=== PATIENT | female | born 1935 | race African-American/Black ===

== ENCOUNTER 2016-10-21 14:07 | Inpatient (IN) | payer MEDICARE, MEDICAID ==
[~2016-10-21] VITALS: Ht 165.1 cm; Wt 74.8 kg
[~2016-10-21 14:07] MED LIST: AMLO5TAB4; CLOP75TA2; DONE5TAB7; LACT10SO76; LISI-186; NEPVIT; PIOG15TA6; ROSU20TA
[2016-10-21 16:13] LABS: BASOPHILS % 1.1 % (0.0-2.0); EOSINOPHILS % 5.6 % (0.0-5.0); HEMATOCRIT. 35.4 % (36.0-48.0); HEMOGLOBIN. 11.5 g/dL (12.0-16.0); LYMPHOCYTES % 30.4 % (20.0-50.0); MEAN CORPUSCULAR VOLUME 98.1 fL (81.0-99.0); MEAN PLATELET VOLUME 9.1 fl (7.4-10.4); MONOCYTES % 7.2 % (2.0-8.0); NEUTROPHILS % 55.7 % (40.0-76.0); PLATELET 164 x1000/uL (130-400); RED BLOOD CELL COUNT 3.61 mill/uL (4.2-5.4); RED CELL DISTRIBUTION WIDTH 13.6 % (11.6-14.6)
[2016-10-21 16:17] LABS: CHLORIDE 115 mEq/L (98-107)
[2016-10-21 16:20] LABS: INR 1.1; PROTHROMBIN TIME 11.3 sec
[2016-10-21 16:24] LABS: CARBON DIOXIDE 22 mEq/L (21-32)
[2016-10-21 19:31] LABS: CLARITY URINE CLOUDY (CLEAR); COLOR URINE YELLOW (YELLOW); GLUCOSE URINE NEGATIVE (NEGATIVE); KETONES URINE NEGATIVE (NEGATIVE); LEUKOCYTE ESTERASE URINE 3+ (NEGATIVE); NITRITE URINE NEGATIVE (NEGATIVE); OCCULT BLOOD URINE 3+ (NEGATIVE); PROTEIN URINE 3+ (NEGATIVE); SPECIFIC GRAVITY URINE 1.013 (1.005-1.030); UROBILINOGEN URINE 0.2 E.U./dL (0.2-1.0)
[2016-10-22 09:31] VITALS: BP 186/97
[2016-10-22 10:11] VITALS: BP 186/97
[2016-10-22] MEDS ORDERED: [UNRECOGNIZED DRUG - OTHER] (10:32)
[2016-10-22] MEDS ORDERED: CRANBERRY (10:32)
[2016-10-22] MEDS ORDERED: ATOR80TA PO ×2 (10:32)
[2016-10-22] MEDS ORDERED: FAMO20TA8 PO (10:32)
[2016-10-22] MEDS ORDERED: CHOL400T15 MT (10:32)
[2016-10-22] MEDS ORDERED: CALC0.253 PO (10:32)
[2016-10-22] MEDS ORDERED: BRIM5DRO EACHEYE (10:32)
[2016-10-22] MEDS ORDERED: DEXT15DR5 EACHEYE (10:32)
[2016-10-22] MEDS ORDERED: DOCU-150 PO (10:32)
[2016-10-22] MEDS ORDERED: ACET-2178 PO (10:32)
[2016-10-22] MEDS ORDERED: BIMA2.5D4 EACHEYE (10:32)
[2016-10-22 12:11] VITALS: BP 159/90
[2016-10-22] MEDS: INSULIN LISPRO 100 UNITS/ML SUBCUT SCH ×2 (12:50→17:04)
[2016-10-22] MEDS: SODIUM CHLORIDE 0.45% 1,000 ML IV SCH (12:52)
[2016-10-22] MEDS: LACTULOSE 20G/30ML UDC PO SCH (12:52)
[2016-10-22] MEDS: CLOPIDOGREL 75MG TABLET PO SCH (12:53)
[2016-10-22] MEDS: LISINOPRIL 5MG TABLET PO SCH (12:53)
[2016-10-22] MEDS: AMLODIPINE 5MG TABLET PO SCH (12:53)
[2016-10-22] MEDS: FOLIC ACID 1MG TABLET PO SCH (12:53)
[2016-10-22] MEDS: BLOOD SUGAR DIAGNOSTIC STRIP TEST SCH ×3 (12:53→21:00)
[2016-10-22 16:00] VITALS: BP 161/93
[2016-10-22] MEDS: LEVOFLOXACIN 250MG PREMIX 50 ML IV SCH (17:10)
[2016-10-22 20:00] VITALS: BP 156/95
[2016-10-23] VITALS: BP 156/108
[2016-10-23] MEDS: SODIUM CHLORIDE 0.45% 1,000 ML IV SCH ×2 (04:02→17:27)
[2016-10-23 07:23] LABS: VITAMIN B12 SERUM 455 pg/mL (211-911)
[2016-10-23] MEDS: INSULIN LISPRO 100 UNITS/ML SUBCUT SCH ×4 (07:50→20:57)
[2016-10-23 08:00] VITALS: BP 153/70
[2016-10-23] MEDS: CLOPIDOGREL 75MG TABLET PO SCH (08:51)
[2016-10-23] MEDS: FOLIC ACID 1MG TABLET PO SCH (08:51)
[2016-10-23] MEDS: AMLODIPINE 5MG TABLET PO SCH (08:51)
[2016-10-23] MEDS: LACTULOSE 20G/30ML UDC PO SCH (08:51)
[2016-10-23] MEDS: LISINOPRIL 5MG TABLET PO SCH (08:52)
[2016-10-23 12:00] VITALS: BP 169/93
[2016-10-23] MEDS: BLOOD SUGAR DIAGNOSTIC STRIP TEST SCH ×3 (12:20→20:57)
[2016-10-23] MEDS ORDERED: AMLODIPINE 5MG TABLET PO NR (13:10)
[2016-10-23 13:47] LABS: CREATININE URINE (RAW) 57.2 mg/dl
[2016-10-23] MEDS: HYDROCODONE/ACETAMINOPHEN 5/325MG TABLET PO PRN (13:52)
[2016-10-23 16:00] VITALS: BP 148/85
[2016-10-23] MEDS: ENOXAPARIN 30MG/0.3ML SYR SUBCUT SCH (17:27)
[2016-10-23 20:00] VITALS: BP 116/73
[2016-10-23] MEDS: LORAZEPAM 2MG/ML CPJ IM PRN (22:52)
[2016-10-24 04:00] VITALS: BP 174/98
[2016-10-24] MEDS: HYDROCODONE/ACETAMINOPHEN 5/325MG TABLET PO PRN (05:40)
[2016-10-24] MEDS: SODIUM CHLORIDE 0.45% 1,000 ML IV SCH (06:03)
[2016-10-24 06:42] VITALS: BP 142/75
[2016-10-24 06:55] LABS: BASOPHILS % 1.1 % (0.0-2.0); EOSINOPHILS % 5.3 % (0.0-5.0); HEMATOCRIT. 32.4 % (36.0-48.0); HEMOGLOBIN. 10.9 g/dL (12.0-16.0); LYMPHOCYTES % 30.6 % (20.0-50.0); MEAN CORPUSCULAR HEMOGLOBIN 32.5 pg (28.0-32.0); MEAN CORPUSCULAR VOLUME 96.5 fL (81.0-99.0); MONOCYTES % 7.4 % (2.0-8.0); NEUTROPHILS % 55.6 % (40.0-76.0); PLATELET 152 x1000/uL (130-400); RED BLOOD CELL COUNT 3.36 mill/uL (4.2-5.4); RED CELL DISTRIBUTION WIDTH 13.7 % (11.6-14.6)
[2016-10-24] MEDS: BLOOD SUGAR DIAGNOSTIC STRIP TEST SCH ×4 (07:20→20:35)
[2016-10-24] MEDS: INSULIN LISPRO 100 UNITS/ML SUBCUT SCH ×4 (07:50→20:35)
[2016-10-24 08:00] VITALS: BP 130/77
[2016-10-24] MEDS: LACTULOSE 20G/30ML UDC PO SCH (09:06)
[2016-10-24] MEDS: FOLIC ACID 1MG TABLET PO SCH (09:07)
[2016-10-24] MEDS: AMLODIPINE 10MG TABLET PO SCH (09:07)
[2016-10-24] MEDS: LORAZEPAM 2MG/ML CPJ IM PRN ×2 (09:07→21:31)
[2016-10-24 12:00] VITALS: BP 128/78
[2016-10-24] MEDS: LEVOFLOXACIN 250MG PREMIX 50 ML IV SCH (12:41)
[2016-10-24] MEDS: SODIUM BICARBONATE 50 MEQ in SODIUM CHLORIDE 0.45% 1,000 ML IV SCH (14:23)
[2016-10-24] MEDS: CLOPIDOGREL 75MG TABLET PO SCH (15:15)
[2016-10-24] MEDS: ENOXAPARIN 30MG/0.3ML SYR SUBCUT SCH (15:16)
[2016-10-24 16:00] VITALS: BP 118/78
[2016-10-24 20:00] VITALS: BP 139/73
[2016-10-25] VITALS: BP 145/69
[2016-10-25 04:00] VITALS: BP 150/79
[2016-10-25] MEDS: SODIUM BICARBONATE 50 MEQ in SODIUM CHLORIDE 0.45% 1,000 ML IV SCH (05:52)
[2016-10-25] MEDS: BLOOD SUGAR DIAGNOSTIC STRIP TEST SCH ×4 (06:08→21:05)
[2016-10-25] MEDS: DEXTROSE 50% WATER 50ML SYRINGE IV PRN (06:12)
[2016-10-25] MEDS: INSULIN LISPRO 100 UNITS/ML SUBCUT SCH ×4 (07:39→21:00)
[2016-10-25 07:52] LABS: BASOPHILS % 1.1 % (0.0-2.0); EOSINOPHILS % 5.6 % (0.0-5.0); HEMATOCRIT. 33.6 % (36.0-48.0); HEMOGLOBIN. 11.1 g/dL (12.0-16.0); LYMPHOCYTES % 25.1 % (20.0-50.0); MEAN CORPUSCULAR VOLUME 96.8 fL (81.0-99.0); MEAN PLATELET VOLUME 8.8 fl (7.4-10.4); NEUTROPHILS % 60.2 % (40.0-76.0); PLATELET 160 x1000/uL (130-400); RED BLOOD CELL COUNT 3.47 mill/uL (4.2-5.4); RED CELL DISTRIBUTION WIDTH 13.4 % (11.6-14.6)
[2016-10-25 07:58] VITALS: BP 128/76
[2016-10-25] MEDS: FOLIC ACID 1MG TABLET PO SCH (09:34)
[2016-10-25] MEDS: ENOXAPARIN 30MG/0.3ML SYR SUBCUT SCH (09:34)
[2016-10-25] MEDS: CLOPIDOGREL 75MG TABLET PO SCH (09:34)
[2016-10-25] MEDS: LACTULOSE 20G/30ML UDC PO SCH (09:34)
[2016-10-25] MEDS: AMLODIPINE 10MG TABLET PO SCH (09:35)
[2016-10-25 12:00] VITALS: BP 163/97
[2016-10-25] MEDS ORDERED: CLONIDINE 0.1MG TABLET PO PRN (13:00)
[2016-10-25 16:00] VITALS: BP 123/76
[2016-10-25 18:29] LABS: INR 1.1; PARTIAL THROMBOPLASTIN TIME 34.1 sec (24.0-34.0)
[2016-10-25 20:00] VITALS: BP 168/85
[2016-10-26] VITALS: BP 147/77
[2016-10-26 04:00] VITALS: BP 168/85
[2016-10-26] MEDS: BLOOD SUGAR DIAGNOSTIC STRIP TEST SCH ×4 (06:47→21:23)
[2016-10-26] MEDS: DEXTROSE 50% WATER 50ML SYRINGE IV PRN (06:48)
[2016-10-26] MEDS: INSULIN LISPRO 100 UNITS/ML SUBCUT SCH ×4 (06:48→21:00)
[2016-10-26 06:54] LABS: HEPATITIS B SURFACE ANTIGEN NEGATIVE
[2016-10-26 07:35] LABS: HEPATITIS B SURFACE AB < 3.1 mIU/mL
[2016-10-26 08:12] VITALS: BP 126/88
[2016-10-26 09:54] LABS: BASOPHILS % 1.3 % (0.0-2.0); EOSINOPHILS % 5.6 % (0.0-5.0); HEMATOCRIT. 34.9 % (36.0-48.0); HEMOGLOBIN. 11.5 g/dL (12.0-16.0); LYMPHOCYTES % 33.1 % (20.0-50.0); MEAN CORPUSCULAR VOLUME 97.3 fL (81.0-99.0); MEAN PLATELET VOLUME 9.6 fl (7.4-10.4); PLATELET 166 x1000/uL (130-400); RED BLOOD CELL COUNT 3.58 mill/uL (4.2-5.4); RED CELL DISTRIBUTION WIDTH 13.6 % (11.6-14.6)
[2016-10-26] MEDS: LACTULOSE 20G/30ML UDC PO SCH (10:57)
[2016-10-26] MEDS: AMLODIPINE 10MG TABLET PO SCH (10:58)
[2016-10-26] MEDS: FOLIC ACID 1MG TABLET PO SCH (10:58)
[2016-10-26] MEDS ORDERED: LEVOFLOXACIN 250MG TABLET PO SCH (11:00)
[2016-10-26 12:03] VITALS: BP 128/84
[2016-10-26] MEDS ORDERED: SODIUM POLYSTYRENE SULFONATE 15 G/60 ML BOT PO NR (15:45)
[2016-10-26 16:00] VITALS: BP 108/74
[2016-10-26 20:00] VITALS: BP 115/83
[2016-10-27] VITALS (16 sets, daily range): BP systolic 121–152; BP diastolic 71–99
[2016-10-27] MEDS: BLOOD SUGAR DIAGNOSTIC STRIP TEST SCH ×3 (06:36→17:52)
[2016-10-27 07:34] LABS: BASOPHILS % 0.7 % (0.0-2.0); EOSINOPHILS % 2.2 % (0.0-5.0); HEMATOCRIT. 32.2 % (36.0-48.0); HEMOGLOBIN. 10.9 g/dL (12.0-16.0); LYMPHOCYTES % 21.7 % (20.0-50.0); MEAN CORPUSCULAR HEMOGLOBIN 32.8 pg (28.0-32.0); MEAN CORPUSCULAR VOLUME 96.7 fL (81.0-99.0); MEAN PLATELET VOLUME 9.2 fl (7.4-10.4); MONOCYTES % 7.4 % (2.0-8.0); PLATELET 156 x1000/uL (130-400); RED BLOOD CELL COUNT 3.33 mill/uL (4.2-5.4); RED CELL DISTRIBUTION WIDTH 13.4 % (11.6-14.6)
[2016-10-27] MEDS: INSULIN LISPRO 100 UNITS/ML SUBCUT SCH ×3 (07:50→17:50)
[2016-10-27] MEDS: LACTULOSE 20G/30ML UDC PO SCH (08:34)
[2016-10-27 08:42] LABS: PARTIAL THROMBOPLASTIN TIME 31.3 sec (24.0-34.0); PROTHROMBIN TIME 10.7 sec
[2016-10-27] MEDS: FOLIC ACID 1MG TABLET PO SCH (09:01)
[2016-10-27] MEDS: AMLODIPINE 10MG TABLET PO SCH (09:01)
[2016-10-27] MEDS ORDERED: CEFAZOLIN 1000MG PREMIX 50 ML IV ONE ×2 (10:00→10:45)
[2016-10-27] MEDS ORDERED: FENTANYL CITRATE/PF 50MCG/ML 2ML VIAL IV ONE (10:27)
[2016-10-27] MEDS ORDERED: FENTANYL CITRATE/PF 50MCG/ML 2ML VIAL ONE (10:32)
[2016-10-27] MEDS ORDERED: SODIUM BICARBONATE 4% (2.4MEQ) 5ML VIAL IV ONE (10:39)
[2016-10-27] MEDS ORDERED: LIDOCAINE HCL 1% 20ML VIAL (Pyxis) INJ ONE (10:40)
== END 2016-10-27 19:00 | DRG 64 ==
LOC: ER 14:50 → 6WST 17:54
PROVIDERS: ADMIT Internal Medicine; ATTEND Internal Medicine
PROC: 4A00X4Z Measurement of Central Nervous Electrical Activity, External Approach (ICD-10-PCS; principal; 2016-10-25)
PROC: 02HV33Z Insertion of Infusion Device into Superior Vena Cava, Percutaneous Approach (ICD-10-PCS; 2016-10-27)
PROC: B5181ZA Fluoroscopy of Superior Vena Cava using Low Osmolar Contrast, Guidance (ICD-10-PCS; 2016-10-27)
PROC: B548ZZA Ultrasonography of Superior Vena Cava, Guidance (ICD-10-PCS; 2016-10-27)
PROC: 5A1D00Z (ICD-10-PCS; 2016-10-27)
DX: I63.9 Cerebral infarction, unspecified (principal); G93.40 Encephalopathy, unspecified; N18.6 End stage renal disease; E87.0 Hyperosmolality and hypernatremia; E87.2 Acidosis; I12.0 Hypertensive chronic kidney disease with stage 5 chronic kidney disease or end stage renal disease; N39.0 Urinary tract infection, site not specified; G81.91 Hemiplegia, unspecified affecting right dominant side; E11.22 Type 2 diabetes mellitus with diabetic chronic kidney disease; E11.21 Type 2 diabetes mellitus with diabetic nephropathy; E78.00 Pure hypercholesterolemia, unspecified; E86.0 Dehydration; E87.5 Hyperkalemia; F03.90 Unspecified dementia, unspecified severity, without behavioral disturbance, psychotic disturbance, mood disturbance, and anxiety; F09 Unspecified mental disorder due to known physiological condition; H54.0 Blindness, both eyes; R62.7 Adult failure to thrive; M19.90 Unspecified osteoarthritis, unspecified site; I25.10 Atherosclerotic heart disease of native coronary artery without angina pectoris; J44.9 Chronic obstructive pulmonary disease, unspecified; Z99.2 Dependence on renal dialysis; Z79.899 Other long term (current) drug therapy; Z87.01 Personal history of pneumonia (recurrent)
CPT/HCPCS: 36415; 36558; 51702; 70450; 70551; 71010; 76770; 76937; 77001; 80048; 80053; 80061; 81001; 82565; 82575; 82607; 82947; 82962; 84100; 84443; 85025; 85610; 85730; 86706; 86803; 87086; 87340; 92610; 93005; 93880; 96361; 96365; 97162; 99285; A6261; C1750; C1893; J0690; J1650; J1956; J2060; J3010; J3490; A4315

== ENCOUNTER 2017-04-11 17:42 | Inpatient (IN) | payer MEDICARE, MEDICAID ==
[~2017-04-11] VITALS: Ht 165.1 cm; Wt 68.0 kg
[~2017-04-11 17:42] MED LIST changes: +ACET-2178 PO; +ATOR80TA PO; +BIMA2.5D4 EACHEYE; +BRIM5DRO EACHEYE; +CALC0.253 PO; +CHOL400T15 MT; +CLOP75TA16; -CLOP75TA2; +CRANBERRY; +DEXT15DR5 EACHEYE; +DOCU-150 PO; +FAMO20TA8 PO; -NEPVIT; +NEPVIT PO; +[UNRECOGNIZED DRUG - OTHER]
[2017-04-11 18:39] LABS: BASOPHILS % 1.3 % (0.0-2.0); EOSINOPHILS % 5.9 % (0.0-5.0); HEMATOCRIT. 37.1 % (36.0-48.0); HEMOGLOBIN. 12.2 g/dL (12.0-16.0); LYMPHOCYTES % 28.8 % (20.0-50.0); MEAN CORPUSCULAR VOLUME 103.4 fL (81.0-99.0); MEAN PLATELET VOLUME 8.2 fl (7.4-10.4); MONOCYTES % 9.5 % (2.0-8.0); NEUTROPHILS % 54.5 % (40.0-76.0); PLATELET 175 x1000/uL (130-400); RED BLOOD CELL COUNT 3.59 mill/uL (4.2-5.4); RED CELL DISTRIBUTION WIDTH 15.5 % (11.6-14.6)
[2017-04-11 18:45] LABS: CHLORIDE 109 mEq/L (98-107)
[2017-04-11 18:46] LABS: PROTHROMBIN TIME 10.5 sec (9.4-11.6)
[2017-04-11 18:53] LABS: CARBON DIOXIDE 26 mEq/L (21-32)
[2017-04-11] MEDS ORDERED: VANCOMYCIN 1 G PREMIX 200 ML IV SCH (20:00)
[2017-04-11] MEDS ORDERED: IBUPROFEN 600MG TABLET PO PRN (20:30)
[2017-04-11] MEDS ORDERED: ACETAMINOPHEN 325MG TABLET PO PRN (20:30)
[2017-04-11 22:40] VITALS: BP 139/71
[2017-04-12] VITALS: BP 141/70
[2017-04-12] MEDS ORDERED: CINA30 PO (01:09)
[2017-04-12] MEDS ORDERED: CALC0.253 PO (01:13)
[2017-04-12] MEDS ORDERED: CALC668T PO (01:15)
[2017-04-12] MEDS ORDERED: CLON0.1T14 PO (01:18)
[2017-04-12] MEDS ORDERED: LACT10SO PO (01:26)
[2017-04-12] MEDS ORDERED: LACT10SO6 MT (01:26)
[2017-04-12] MEDS ORDERED: SODI15PO2 PO (01:31)
[2017-04-12 05:25] VITALS: BP 126/75
[2017-04-12] MEDS ORDERED: DEXTROSE 50% WATER 50ML SYRINGE IV PRN (06:30)
[2017-04-12] MEDS ORDERED: ACETAMINOPHEN 325MG TABLET PO SCH (06:45)
[2017-04-12] MEDS ORDERED: CLONIDINE 0.1MG TABLET PO PRN (06:45)
[2017-04-12] MEDS: BLOOD SUGAR DIAGNOSTIC STRIP TEST SCH ×4 (06:55→21:00)
[2017-04-12] MEDS: INSULIN LISPRO 100 UNITS/ML SUBCUT SCH ×4 (06:55→21:00)
[2017-04-12 07:43] VITALS: BP 122/62
[2017-04-12] MEDS ORDERED: SODIUM POLYSTYRENE SULFONATE 30 GM PO SCH (09:00)
[2017-04-12] MEDS ORDERED: CALCIUM ACETATE PO SCH (09:00)
[2017-04-12] MEDS: FOLIC ACID/VITAMIN B COMP W-C TABLET PO SCH (09:36)
[2017-04-12] MEDS: CLOPIDOGREL 75MG TABLET PO SCH (09:36)
[2017-04-12] MEDS: AMLODIPINE 5MG TABLET PO SCH (09:36)
[2017-04-12] MEDS: CINACALCET HCL 30MG TABLET PO SCH (09:37)
[2017-04-12] MEDS: SODIUM POLYSTYRENE SULFONATE 15 G/60 ML BOT PO SCH ×3 (09:41→16:34)
[2017-04-12] MEDS: CALCIUM ACETATE 667MG CAPSULE PO SCH ×3 (09:55→18:08)
[2017-04-12 10:24] LABS: BASOPHILS % 1.2 % (0.0-2.0); EOSINOPHILS % 8.2 % (0.0-5.0); HEMOGLOBIN. 11.6 g/dL (12.0-16.0); LYMPHOCYTES % 27.6 % (20.0-50.0); MEAN CORPUSCULAR HEMOGLOBIN 33.9 pg (28.0-32.0); MEAN CORPUSCULAR VOLUME 102.1 fL (81.0-99.0); MEAN PLATELET VOLUME 8.4 fl (7.4-10.4); MONOCYTES % 6.9 % (2.0-8.0); NEUTROPHILS % 56.1 % (40.0-76.0); PLATELET 169 x1000/uL (130-400); RED BLOOD CELL COUNT 3.43 mill/uL (4.2-5.4); RED CELL DISTRIBUTION WIDTH 15.2 % (11.6-14.6)
[2017-04-12 12:08] VITALS: BP 120/76
[2017-04-12] MEDS ORDERED: LIDOCAINE HCL 1% 20ML VIAL (Pyxis) INJ ONE (13:53)
[2017-04-12] MEDS ORDERED: SODIUM BICARBONATE 4% (2.4MEQ) 5ML VIAL IV ONE (13:53)
[2017-04-12] MEDS ORDERED: VANCOMYCIN 500 MG PREMIX 100 ML IV NR (15:00)
[2017-04-12 15:37] VITALS: BP 135/90
[2017-04-12] MEDS: LACTULOSE 20G/30ML UDC PO SCH ×2 (16:19→22:00)
[2017-04-12] MEDS: CALCITRIOL 0.25MCG CAPSULE PO SCH (18:08)
[2017-04-12 20:00] VITALS: BP 106/73
[2017-04-13] VITALS: BP 115/63
[2017-04-13 04:00] VITALS: BP 133/69
[2017-04-13] MEDS: LACTULOSE 20G/30ML UDC PO SCH ×3 (06:00→23:13)
[2017-04-13] MEDS: BLOOD SUGAR DIAGNOSTIC STRIP TEST SCH ×4 (06:07→21:17)
[2017-04-13] MEDS: INSULIN LISPRO 100 UNITS/ML SUBCUT SCH ×4 (06:34→21:00)
[2017-04-13 08:00] VITALS: BP 114/76
[2017-04-13] MEDS: CALCIUM ACETATE 667MG CAPSULE PO SCH ×3 (08:12→18:04)
[2017-04-13] MEDS: AMLODIPINE 5MG TABLET PO SCH (09:16)
[2017-04-13] MEDS: CLOPIDOGREL 75MG TABLET PO SCH (09:16)
[2017-04-13] MEDS: CINACALCET HCL 30MG TABLET PO SCH (09:17)
[2017-04-13] MEDS: FOLIC ACID/VITAMIN B COMP W-C TABLET PO SCH (09:18)
[2017-04-13 12:00] VITALS: BP 131/61
[2017-04-13 17:42] VITALS: BP 160/60
[2017-04-13] MEDS: CALCITRIOL 0.25MCG CAPSULE PO SCH (18:04)
[2017-04-13 20:00] VITALS: BP 91/51
[2017-04-14] VITALS: BP 121/67
[2017-04-14 04:00] VITALS: BP 133/96
[2017-04-14] MEDS: LACTULOSE 20G/30ML UDC PO SCH ×3 (06:43→21:31)
[2017-04-14] MEDS: BLOOD SUGAR DIAGNOSTIC STRIP TEST SCH ×4 (06:46→21:31)
[2017-04-14] MEDS: INSULIN LISPRO 100 UNITS/ML SUBCUT SCH ×4 (07:50→21:00)
[2017-04-14 08:00] VITALS: BP 100/55
[2017-04-14] MEDS: CLOPIDOGREL 75MG TABLET PO SCH (10:07)
[2017-04-14] MEDS: FOLIC ACID/VITAMIN B COMP W-C TABLET PO SCH (10:07)
[2017-04-14] MEDS: AMLODIPINE 5MG TABLET PO SCH (10:07)
[2017-04-14] MEDS: CALCIUM ACETATE 667MG CAPSULE PO SCH ×3 (12:50→17:57)
[2017-04-14] MEDS: CINACALCET HCL 30MG TABLET PO SCH (14:16)
[2017-04-14] MEDS ORDERED: HEPARIN SODIUM 1,000 UNIT/1ML VIAL IV NR (15:00)
[2017-04-14 16:00] VITALS: BP 114/61
[2017-04-14] MEDS ORDERED: ACETAMINOPHEN 325MG TABLET PO PRN (16:00)
[2017-04-14] MEDS: CALCITRIOL 0.25MCG CAPSULE PO SCH (17:52)
[2017-04-14 20:00] VITALS: BP 137/70
[2017-04-15] VITALS (11 sets, daily range): BP systolic 91–152; BP diastolic 50–75
[2017-04-15] MEDS: LACTULOSE 20G/30ML UDC PO SCH ×5 (06:03→21:27)
[2017-04-15] MEDS: BLOOD SUGAR DIAGNOSTIC STRIP TEST SCH ×4 (06:27→21:10)
[2017-04-15] MEDS: INSULIN LISPRO 100 UNITS/ML SUBCUT SCH ×4 (07:50→21:00)
[2017-04-15] MEDS: CALCIUM ACETATE 667MG CAPSULE PO SCH ×3 (07:50→17:37)
[2017-04-15] MEDS: CLOPIDOGREL 75MG TABLET PO SCH ×2 (09:00→10:07)
[2017-04-15] MEDS: CINACALCET HCL 30MG TABLET PO SCH ×2 (09:00→10:07)
[2017-04-15] MEDS: AMLODIPINE 5MG TABLET PO SCH ×2 (09:00→10:08)
[2017-04-15] MEDS: FOLIC ACID/VITAMIN B COMP W-C TABLET PO SCH ×2 (09:00→10:07)
[2017-04-15] MEDS ORDERED: DEXTROSE 50% WATER 50ML SYRINGE IV NR (10:45)
[2017-04-15] MEDS ORDERED: SODIUM BICARBONATE 4% (2.4MEQ) 5ML VIAL IV ONE (11:06)
[2017-04-15] MEDS ORDERED: LIDOCAINE HCL 1% 20ML VIAL (Pyxis) INJ ONE (11:06)
[2017-04-15] MEDS ORDERED: CEFAZOLIN 1000MG PREMIX 50 ML IV ONE ×2 (11:06→11:30)
[2017-04-15] MEDS ORDERED: FENTANYL CITRATE/PF 50MCG/ML 2ML VIAL ONE (11:25)
[2017-04-15] MEDS ORDERED: FENTANYL CITRATE/PF 50MCG/ML 2ML VIAL IV ONE (12:30)
[2017-04-15] MEDS ORDERED: VANCOMYCIN 1 G PREMIX 200 ML IV NR (18:00)
[2017-04-15] MEDS: CALCITRIOL 0.25MCG CAPSULE PO SCH (21:29)
[2017-04-16] VITALS: BP 130/80
[2017-04-16 04:00] VITALS: BP 117/95
[2017-04-16] MEDS: LACTULOSE 20G/30ML UDC PO SCH (06:45)
[2017-04-16] MEDS: BLOOD SUGAR DIAGNOSTIC STRIP TEST SCH (06:46)
[2017-04-16] MEDS: INSULIN LISPRO 100 UNITS/ML SUBCUT SCH (07:50)
[2017-04-16 08:00] VITALS: BP 121/65
[2017-04-16] MEDS: FOLIC ACID/VITAMIN B COMP W-C TABLET PO SCH (08:40)
[2017-04-16] MEDS: CINACALCET HCL 30MG TABLET PO SCH (08:40)
[2017-04-16] MEDS: CLOPIDOGREL 75MG TABLET PO SCH (08:40)
[2017-04-16] MEDS: AMLODIPINE 5MG TABLET PO SCH (08:40)
[2017-04-16] MEDS: CALCIUM ACETATE 667MG CAPSULE PO SCH (08:40)
[2017-04-16 09:18] VITALS: BP 121/65
== END 2017-04-16 10:15 | DRG 314 ==
LOC: ER 17:54 → 6WST 20:30 → ENRESERV 21:20
PROVIDERS: ADMIT Internal Medicine; ATTEND Internal Medicine
PROC: 5A1D70Z Performance of Urinary Filtration, Intermittent, Less than 6 Hours Per Day (ICD-10-PCS; 2017-04-12)
PROC: 05PYX3Z Removal of Infusion Device from Upper Vein, External Approach (ICD-10-PCS; 2017-04-12)
PROC: 02HV33Z Insertion of Infusion Device into Superior Vena Cava, Percutaneous Approach (ICD-10-PCS; principal; 2017-04-15)
PROC: B5181ZA Fluoroscopy of Superior Vena Cava using Low Osmolar Contrast, Guidance (ICD-10-PCS; 2017-04-15)
PROC: B548ZZA Ultrasonography of Superior Vena Cava, Guidance (ICD-10-PCS; 2017-04-15)
DX: T80.211A Bloodstream infection due to central venous catheter, initial encounter (principal); G93.40 Encephalopathy, unspecified; A41.9 Sepsis, unspecified organism; E46 Unspecified protein-calorie malnutrition; N18.6 End stage renal disease; I12.0 Hypertensive chronic kidney disease with stage 5 chronic kidney disease or end stage renal disease; E11.22 Type 2 diabetes mellitus with diabetic chronic kidney disease; I25.10 Atherosclerotic heart disease of native coronary artery without angina pectoris; H54.7 Unspecified visual loss; F03.90 Unspecified dementia, unspecified severity, without behavioral disturbance, psychotic disturbance, mood disturbance, and anxiety; Y84.8 Other medical procedures as the cause of abnormal reaction of the patient, or of later complication, without mention of misadventure at the time of the procedure; E78.00 Pure hypercholesterolemia, unspecified; J44.9 Chronic obstructive pulmonary disease, unspecified; Z99.2 Dependence on renal dialysis; Z68.25 Body mass index [BMI] 25.0-25.9, adult; Y92.89 Other specified places as the place of occurrence of the external cause
CPT/HCPCS: 36415; 36556; 36558; 36589; 71010; 76937; 77001; 80048; 80053; 80202; 82962; 83605; 85025; 85610; 85730; 87040; 87070; 93005; 96365; 99285; A6261; C1750; C1752; C1769; C1887; C1893; J0690; J1642; J3010; J3370; J3490; J7030; J7040; J7050

== ENCOUNTER 2019-07-28 13:17 | Emergency (ER) | payer MEDICARE, MEDICAID ==
[~2019-07-28] VITALS: Ht 165.1 cm; Wt 66.0 kg
[~2019-07-28 13:17] MED LIST changes: -ACET-2178 PO; -ATOR80TA PO; -BIMA2.5D4 EACHEYE; -BRIM5DRO EACHEYE; -CHOL400T15 MT; +CINA30 PO; +CLON0.1T14 PO; -CLOP75TA16; +CLOP75TA4; -CRANBERRY; -DEXT15DR5 EACHEYE; -DOCU-150 PO; -DONE5TAB7; -FAMO20TA8 PO; +LACT10SO PO; -LACT10SO76; -LISI-186; -PIOG15TA6; -ROSU20TA; +TOPUD PO; -[UNRECOGNIZED DRUG - OTHER]
[2019-07-28 15:15] LABS: BASOPHILS % 2.8 % (0.0-2.0); HEMATOCRIT. 34.5 % (36.0-48.0); HEMOGLOBIN. 11.5 g/dL (12.0-16.0); LYMPHOCYTES % 36.5 % (20.0-50.0); MEAN CORPUSCULAR VOLUME 98.6 fL (81.0-99.0); MEAN PLATELET VOLUME 8.8 fl (7.4-10.4); MONOCYTES % 7.6 % (2.0-8.0); NEUTROPHILS % 48.1 % (40.0-76.0); PLATELET 173 x1000/uL (130-400); RED BLOOD CELL COUNT 3.49 mill/uL (4.2-5.4); RED CELL DISTRIBUTION WIDTH 14.3 % (11.6-14.6)
[2019-07-28 15:18] LABS: CHLORIDE 109 mEq/L (98-107)
[2019-07-28 15:20] LABS: PARTIAL THROMBOPLASTIN TIME 26.8 sec (23.4-31.0); PROTHROMBIN TIME 10.7 sec (9.6-11.0)
[2019-07-28 18:30] VITALS: BP 129/59
== END 2019-07-28 18:52 ==
LOC: ER 13:27 → CANBEDREQ 19:42
DX: T82.41XA Breakdown (mechanical) of vascular dialysis catheter, initial encounter (principal); E11.22 Type 2 diabetes mellitus with diabetic chronic kidney disease; Y84.1 Kidney dialysis as the cause of abnormal reaction of the patient, or of later complication, without mention of misadventure at the time of the procedure; Y92.9 Unspecified place or not applicable; J44.9 Chronic obstructive pulmonary disease, unspecified; F03.90 Unspecified dementia, unspecified severity, without behavioral disturbance, psychotic disturbance, mood disturbance, and anxiety; E78.00 Pure hypercholesterolemia, unspecified; M19.90 Unspecified osteoarthritis, unspecified site; N18.6 End stage renal disease; Z99.2 Dependence on renal dialysis; Z87.01 Personal history of pneumonia (recurrent)
CPT/HCPCS: 36415; 71045; 80053; 83880; 84484; 85025; 93005; 99285